=== PATIENT | female | born 1960 | race Caucasian/White ===

== ENCOUNTER 2021-08-15 08:47 | Outpatient (RCR) | payer BC, SELFPAY ==
[2021-08-15] MEDS: FAMOTIDINE 20 MG TABLET PO (11:38)
[2021-08-15] MEDS: diphenhydrAMINE HCl CAP 25 MG CAPSULE PO (11:38)
[2021-08-15] MEDS: ACETAMINOPHEN 325 MG TABLET 650 MG PO (11:38)
[2021-08-15 11:44] VITALS: BP 149/99; PULSE 101; TEMP 36.3; O2SAT 100
[2021-08-15 13:21] VITALS: BP 154/101; PULSE 81; RESP 18; O2SAT 100
== END 2021-08-15 16:40 ==
LOC: AMCINF 08:47
PROVIDERS: PCP Internal Medicine; Referring Provider Internal Medicine; Visit Provider Internal Medicine Hematology & Oncology
DX: U07.1 COVID-19 (principal); D84.9 Immunodeficiency, unspecified
CPT/HCPCS: A9270; M0247; Q0247